=== PATIENT | male | born 1945 | race Caucasian/White ===

== ENCOUNTER 2025-10-28 19:16 | Inpatient (IN) ==
[2025-10-28 20:01] LABS: Basophils # (Auto) 0.06 K/mcL (0.00-0.30); Basophils % (Auto) 0.8 % (0.0-2.0); Eosinophils # (Auto) 0.16 K/mcL (0.00-0.70); Eosinophils % (Auto) 2.3 % (0.0-7.0); Hematocrit 36.4 % (40.1-51.0); Hemoglobin 12.4 g/dL (13.7-17.5); Lymphocytes # (Auto) 1.39 K/mcL (1.50-4.80); Lymphocytes % (Auto) 19.7 % (15.5-49.0); Mean Corpuscular HGB Conc 34.1 g/dL (31.0-36.0); Monocytes # (Auto) 0.88 K/mcL (0.10-0.90); Monocytes % (Auto) 12.5 % (1.0-12.0); Neutrophils % (Auto) 64.4 % (38.0-78.0); Platelet Count 213 K/mcL (140-440); RBC 3.88 M/mcL (4.63-6.08); WBC 7.1 K/mcL (4.5-11.0)
[2025-10-28 20:12] LABS: ALT/SGPT 11 U/L (<40); AST/SGOT 17 U/L (<40); Albumin 4.1 gm/dL (3.2-5.2); Albumin/Globulin Ratio 1.8 (1.0-2.3); Alkaline Phosphatase 63 U/L (39-117); Anion Gap 12.0 (8.0-16.0); Bilirubin,Total 0.3 mg/dL (0.1-1.0); Blood Urea Nitrogen 9 mg/dL (8-23); Calcium 9.1 mg/dL (8.6-10.4); Carbon Dioxide 25 mmol/L (22-30); Chloride 87 mmol/L (96-108); Globulin 2.3 gm/dL (2.2-3.7); Glucose 128 mg/dL (70-105); Potassium 4.7 mmol/L (3.3-5.1); Sodium 124 mmol/L (133-145)
[2025-10-28 21:36] LABS: C-Reactive Protein 0.15 mg/dL (0.03-0.80)
[2025-10-28 21:46] LABS: Anion Gap 12.0 (8.0-16.0); Blood Urea Nitrogen 8 mg/dL (8-23); Calcium 9.2 mg/dL (8.6-10.4); Carbon Dioxide 25 mmol/L (22-30); Chloride 88 mmol/L (96-108); Glucose 111 mg/dL (70-105); Potassium 4.7 mmol/L (3.3-5.1); Sodium 125 mmol/L (133-145); Thyroid Stimulating Hormone 1.78 uIU/mL (0.27-5.01)
[2025-10-28] MEDS ORDERED: ONDANSETRON 4 MG/2 ML VIAL IV PRN (23:17)
[2025-10-28] MEDS ORDERED: DEXTROSE 50% 50 ML VIAL IV PRN (23:17)
[2025-10-28] MEDS ORDERED: IPRATROPIUM/ALBUTEROL 3 ML AMPUL.NEB NEB PRN (23:17)
[2025-10-28] MEDS ORDERED: SENNOSIDES 1 TABLET PO PRN (23:17)
[2025-10-28] MEDS ORDERED: DEXTROSE 31 GM ORAL.SUSP PO PRN (23:17)
[2025-10-28] MEDS ORDERED: LACTULOSE 20 GM/30 ML ORAL.SOL PO PRN (23:17)
[2025-10-28] MEDS ORDERED: BISACODYL 10 MG SUPP.RECT PR PRN (23:17)
[2025-10-28] MEDS: LOPERAMIDE 2 MG CAPSULE PO SCH (23:30)
[2025-10-28] MEDS: NIFEdipine 30 MG TAB.XL.24H PO SCH (23:30)
[2025-10-28] MEDS: LOPERAMIDE 2 MG CAPSULE PO ONE (23:32)
[2025-10-28 23:37] LABS: HDL Cholesterol 32.0 mg/dL (>40); LDL Cholesterol,Calculated 83.0 mg/dL (<100); Phosphorous 2.7 mg/dL (2.5-4.5); Triglycerides 239.0 mg/dL (<150)
[2025-10-28] MEDS ORDERED: LOPERAMIDE 2 MG CAPSULE PO PRN (23:50)
[2025-10-28 23:53] LABS: Sodium, Urine Random 136 mmol/L
[2025-10-29 00:37] LABS: Sodium 124 mmol/L (133-145)
[2025-10-29] MEDS: ACETAMINOPHEN 325 MG TABLET PO PRN (00:46)
[2025-10-29] MEDS: ACETAMINOPHEN 325 MG TABLET PO ONE ×2 (00:50→07:46)
[2025-10-29] MEDS: SODIUM CHLORIDE 1 GM TABLET PO ONE ×3 (00:59→13:52)
[2025-10-29] MEDS: 0.9 % SODIUM CHLORIDE 10 ML SYRINGE IV SCH (04:01)
[2025-10-29 06:57] LABS: Basophils # (Auto) 0.05 K/mcL (0.00-0.30); Basophils % (Auto) 0.6 % (0.0-2.0); Eosinophils # (Auto) 0.12 K/mcL (0.00-0.70); Eosinophils % (Auto) 1.5 % (0.0-7.0); Hematocrit 36.4 % (40.1-51.0); Hemoglobin 12.3 g/dL (13.7-17.5); Lymphocytes # (Auto) 1.54 K/mcL (1.50-4.80); Lymphocytes % (Auto) 18.8 % (15.5-49.0); Mean Corpuscular HGB Conc 33.8 g/dL (31.0-36.0); Monocytes # (Auto) 0.90 K/mcL (0.10-0.90); Monocytes % (Auto) 11.0 % (1.0-12.0); Neutrophils % (Auto) 67.9 % (38.0-78.0); Platelet Count 232 K/mcL (140-440); RBC 3.89 M/mcL (4.63-6.08); WBC 8.2 K/mcL (4.5-11.0)
[2025-10-29 07:16] LABS: Anion Gap 12.0 (8.0-16.0); Blood Urea Nitrogen 7 mg/dL (8-23); Calcium 9.0 mg/dL (8.6-10.4); Carbon Dioxide 24 mmol/L (22-30); Chloride 89 mmol/L (96-108); Glucose 125 mg/dL (70-105); Potassium 4.1 mmol/L (3.3-5.1); Sodium 125 mmol/L (133-145)
[2025-10-29] MEDS: INSULIN LISPRO 1 UNIT/0.01 ML UNIT SQ SCH (07:38)
[2025-10-29] MEDS ORDERED: SIMETHICONE 80 MG TAB.CHEW CHEWED PRN (07:55)
[2025-10-29 08:25] LABS: Sodium 123 mmol/L (133-145)
[2025-10-29] MEDS ORDERED: LORATADINE 10 MG TABLET PO SCH (09:00)
[2025-10-29] MEDS: SODIUM CHLORIDE 1 GM TABLET PO SCH (09:31)
[2025-10-29] MEDS: LISINOPRIL 20 MG TABLET PO SCH (09:31)
[2025-10-29] MEDS: OMEPRAZOLE 20 MG CAPSULE PO SCH (09:31)
[2025-10-29] MEDS: PRAMIPEXOLE 0.25 MG TABLET PO SCH (09:31)
[2025-10-29] MEDS: ASPIRIN 81 MG TAB.CHEW PO SCH (09:31)
[2025-10-29] MEDS: PROPRANOLOL 60 MG CAP.XL.24H PO SCH (09:32)
[2025-10-29] MEDS: MONTELUKAST 10 MG TABLET PO SCH (09:32)
[2025-10-29] MEDS: VIT A,C & E/LUTEIN/MINERALS TABLET PO SCH (09:32)
[2025-10-29] MEDS: MULTIVIT,THER IRON,CA,FA & MIN 1 TABLET PO SCH (09:32)
[2025-10-29] MEDS: CALCIUM CARBONATE 500 MG TAB.CHEW CHEWED SCH (09:32)
[2025-10-29] MEDS: VITAMIN D3 10 MCG TABLET PO SCH ×2 (09:32→20:44)
[2025-10-29] MEDS: ENOXAPARIN 40 MG/0.4 ML SYRINGE SQ SCH (09:33)
[2025-10-29] MEDS: CYANOCOBALAMIN (VITAMIN B-12) 500 MCG TABLET PO SCH (09:33)
[2025-10-29] MEDS: FLUTICASONE PROPIONATE SPRAY.NAS NS SCH (09:41)
[2025-10-29] MEDS: IPRATROPIUM/ALBUTEROL 3 ML AMPUL.NEB NEB SCH (10:49)
[2025-10-29 12:36] LABS: Sodium 123 mmol/L (133-145)
[2025-10-29 16:17] LABS: Sodium 124 mmol/L (133-145)
[2025-10-29] MEDS: 0.9 % SODIUM CHLORIDE 500 ML IV ONE ×2 (17:25→20:44)
[2025-10-29 19:29] LABS: Sodium 127 mmol/L (133-145)
[2025-10-29] MEDS: CALCIUM W/VIT D3 500 MG TABLET PO SCH (20:43)
[2025-10-29 23:40] LABS: Sodium 127 mmol/L (133-145)
[2025-10-30] MEDS: 0.9 % SODIUM CHLORIDE 500 ML IV ONE (01:47)
[2025-10-30] MEDS: SODIUM CHLORIDE 1 GM TABLET PO ONE (01:47)
[2025-10-30 03:27] LABS: Sodium 128 mmol/L (133-145)
[2025-10-30 06:07] LABS: Basophils # (Auto) 0.04 K/mcL (0.00-0.30); Basophils % (Auto) 0.5 % (0.0-2.0); Eosinophils # (Auto) 0.10 K/mcL (0.00-0.70); Eosinophils % (Auto) 1.3 % (0.0-7.0); Hematocrit 36.4 % (40.1-51.0); Hemoglobin 12.1 g/dL (13.7-17.5); Lymphocytes # (Auto) 1.63 K/mcL (1.50-4.80); Lymphocytes % (Auto) 20.4 % (15.5-49.0); Mean Corpuscular HGB Conc 33.2 g/dL (31.0-36.0); Monocytes # (Auto) 1.08 K/mcL (0.10-0.90); Monocytes % (Auto) 13.5 % (1.0-12.0); Neutrophils % (Auto) 63.9 % (38.0-78.0); Platelet Count 212 K/mcL (140-440); RBC 3.83 M/mcL (4.63-6.08); WBC 8.0 K/mcL (4.5-11.0)
[2025-10-30 06:30] LABS: Anion Gap 13.0 (8.0-16.0); Blood Urea Nitrogen 8 mg/dL (8-23); C-Reactive Protein 0.34 mg/dL (0.03-0.80); Calcium 8.8 mg/dL (8.6-10.4); Carbon Dioxide 20 mmol/L (22-30); Chloride 93 mmol/L (96-108); Glucose 117 mg/dL (70-105); Potassium 4.2 mmol/L (3.3-5.1); Sodium 126 mmol/L (133-145)
[2025-10-30 07:34] LABS: Sodium 128 mmol/L (133-145)
[2025-10-30] MEDS: FLUTICASONE PROPIONATE SPRAY.NAS NS SCH (08:57)
[2025-10-30 13:27] LABS: Sodium 130 mmol/L (133-145)
[2025-10-30 14:43] LABS: Sodium, Urine Random 102 mmol/L
[2025-10-30] MEDS: CITALOPRAM 20 MG TABLET PO SCH (14:47)
[2025-10-30 19:34] LABS: Sodium 131 mmol/L (133-145)
[2025-10-30] MEDS ORDERED: 0.9 % SODIUM CHLORIDE 500 ML IV ONE (21:00)
[2025-10-30] MEDS: MELATONIN 3 MG TABLET PO PRN (21:44)
[2025-10-31 06:59] LABS: ALT/SGPT 13 U/L (<40); AST/SGOT 16 U/L (<40); Albumin 3.8 gm/dL (3.2-5.2); Albumin/Globulin Ratio 1.7 (1.0-2.3); Alkaline Phosphatase 54 U/L (39-117); Anion Gap 9.0 (8.0-16.0); Bilirubin,Direct 0.4 mg/dL (<0.3); Bilirubin,Total 0.8 mg/dL (0.1-1.0); Blood Urea Nitrogen 15 mg/dL (8-23); Calcium 9.1 mg/dL (8.6-10.4); Carbon Dioxide 26 mmol/L (22-30); Chloride 97 mmol/L (96-108); Globulin 2.3 gm/dL (2.2-3.7); Glucose 140 mg/dL (70-105); Phosphorous 2.7 mg/dL (2.5-4.5); Potassium 4.0 mmol/L (3.3-5.1); Sodium 132 mmol/L (133-145); Triglycerides 91 mg/dL (<150); Uric Acid 3.1 mg/dL (2.5-8.0)
[2025-10-31 07:22] VITALS: TEMP 97.6
[2025-10-31 13:19] VITALS: O2SAT 98
== END 2025-10-31 13:05 | disposition home or self-care (01) | DRG 640 ==
LOC: ED 19:16 → ICU 23:04
PROVIDERS: ADMIT Student in an Organized Health Care Education/Training Program; ATTEND Internal Medicine